=== PATIENT | female | born 1950 | race Caucasian/White ===

== ENCOUNTER → 2017-10-07 | Day surgery (SDC) | payer MEDICARE, BC ==
[~2017-10-07] MED LIST: Lactated Ringers 1,000 ML IV SCH; Midazolam 1 MG/ML 2 ML SDV ONE; Propofol 200 MG/20 ML SDV ONE; fentaNYL 100 MCG/2 ML SDV ONE
[2017-10-07 10:27] VITALS: BP 96/59
--- NOTE | 2017-10-07 10:51 | OR ---
DATE OF PROCEDURE: 10/07/2017 PREOPERATIVE DIAGNOSIS: History of adenomatous colon polyps. POSTOPERATIVE DIAGNOSES: 1. Unremarkable colonoscopy. 2. History of adenomatous colon polyps. PROCEDURE PERFORMED: Colonoscopy to the cecum. SURGEON: Jefferson Urrutia MD. ANESTHESIA: IV anesthesia with monitored anesthesia care. INDICATION: This 66-year-old white female is referred for a colonoscopy because of a history of adenomatous colon polyps. She says her last colonoscopic exam was done about three years ago. I counseled her for the procedure, including risks and alternatives, and she gave her informed consent to proceed. DESCRIPTION OF PROCEDURE: The patient was placed in the left lateral decubitus position. IV anesthesia was administered by the Anesthesia Service. Time-out was held. A rectal exam was performed, which was unremarkable. The flexible video Olympus colonoscope was introduced through her anus, up her rectum, and out her colon all the way to the cecum. Once the cecum was reached, the scope was slowly withdrawn examining the mucosa throughout. No mucosal abnormalities were noted. The scope was retroflexed in the rectum with the distal rectum appearing unremarkable. The scope was straightened and removed. She tolerated the procedure well. Jefferson Urrutia MD /[id number]
== END ==
LOC: JP.SDS 07:17
PROVIDERS: ATTEND Surgery
PROC: 0DJD8ZZ Inspection of Lower Intestinal Tract, Via Natural or Artificial Opening Endoscopic (ICD-10-PCS; principal; 2017-10-07)
DX: Z12.11 Encounter for screening for malignant neoplasm of colon (principal); Z86.010 Personal history of colon polyps; Z88.2 Allergy status to sulfonamides
CPT/HCPCS: G0121; J2250; J2704; J3010; J7120

== ENCOUNTER 2021-10-17 08:51 | Emergency (ER) | payer MEDICARE ==
[2021-10-17 09:08] VITALS: BP 128/62; PULSE 98
[2021-10-17 10:02] LABS: ESTIMATED GFR 69 mL/min (>60)
[2021-10-17 11:05] LABS: CORONAVIRUS COVID-19 NAA NEGATIVE (NEGATIVE)
[2021-10-23 14:10] LABS: HGE IGG TITER Negative (Neg:<1:64); HGE IGM TITER Negative (Neg:<1:20)
== END 2021-10-17 12:17 | disposition home or self-care (01) ==
LOC: JP.ED 08:51
DX: R50.9 Fever, unspecified (principal); E78.00 Pure hypercholesterolemia, unspecified; Z88.0 Allergy status to penicillin; Z88.2 Allergy status to sulfonamides; Z79.82 Long term (current) use of aspirin; Z20.822 Contact with and (suspected) exposure to COVID-19
CPT/HCPCS: 0241U; 36415; 70450; 80053; 85025; 86618; 86666; 99284

== ENCOUNTER 2021-10-23 08:56 | Emergency (ER) | payer MEDICARE ==
[2021-10-23 09:23] VITALS: BP 140/66; PULSE 82
[2021-10-23] MEDS ORDERED: Sodium Chloride 0.9% 10 ML Syringe FLUSH PRN ×2 (09:42→09:49)
[2021-10-23] MEDS ORDERED: Sodium Chloride 0.9% 1,000 ML IV STA (09:42)
[2021-10-23] MEDS ORDERED: fentaNYL 100 MCG/2 ML SDV IVPUSH ONE ×2 (09:44→12:23)
[2021-10-23] MEDS ORDERED: Ondansetron 4 MG/2 ML SDV IVPUSH ONE (09:44)
[2021-10-23] MEDS ORDERED: Iopamidol 612 MG/ML 100 ML Bottle IV PRN (09:49)
[2021-10-23] MEDS ORDERED: Sodium Chloride 0.9% 50 ML IV ONE (09:49)
[2021-10-23 10:28] LABS: ESTIMATED GFR 97 mL/min (>60); TROPONIN I HIGH SENSITIVITY 7.1 pg/mL (<=60.3)
== END 2021-10-23 13:08 | disposition home or self-care (01) ==
LOC: JP.ED 08:56
DX: R11.2 Nausea with vomiting, unspecified (principal); R19.7 Diarrhea, unspecified; E78.00 Pure hypercholesterolemia, unspecified; Z88.0 Allergy status to penicillin; Z88.2 Allergy status to sulfonamides
CPT/HCPCS: 36415; 74177; 80053; 81001; 83605; 83690; 84484; 85025; 96361; 96374; 96375; 96376; 99284; J2405; J3010; J7030

== ENCOUNTER 2022-12-05 06:11 | Day surgery (SDC) | payer MEDICARE ==
[~2022-12-05 06:11] MED LIST changes: -Lactated Ringers 1,000 ML IV SCH; -Midazolam 1 MG/ML 2 ML SDV ONE; -fentaNYL 100 MCG/2 ML SDV ONE; +fentaNYL 50 MCG/ML SDV ONE
[2022-12-05] MEDS ORDERED: Lactated Ringers 1,000 ML IV SCH (07:00)
[2022-12-05 09:41] VITALS: BP 114/71; PULSE 73
== END 2022-12-05 09:42 | disposition home or self-care (01) ==
LOC: JP.SDS 06:11
PROVIDERS: ATTEND Student in an Organized Health Care Education/Training Program
DX: Z12.11 Encounter for screening for malignant neoplasm of colon (principal); D12.3 Benign neoplasm of transverse colon; D12.4 Benign neoplasm of descending colon; K63.5 Polyp of colon; Q43.8 Other specified congenital malformations of intestine; Z80.0 Family history of malignant neoplasm of digestive organs; Z88.2 Allergy status to sulfonamides; Z88.0 Allergy status to penicillin
CPT/HCPCS: J2704; J3010; J7120